=== PATIENT | male | born 1995 | race Caucasian/White ===

== ENCOUNTER → 2016-03-29 | Outpatient (CLI) | payer MEDICAID, BC ==
--- NOTE | 2016-03-29 09:55 | MR ---
MR right brain and internal auditory canals with and without contrast HISTORY: Right-sided hearing loss unspecified, H91.90 Multiplanar multisequence and postcontrast imaging obtained through the brain with small [id number] w and high resolution images through the internal/external auditory canals, patient received 20 cc Mu ltiHance IV No comparisons There is no evidence of acute ischemia. Inflammatory change present in the left maxillary sinus may r epresent retention cyst. Minimal mucosal disease present in the ethmoid air cells, sphenoid, left fro ntal sinus. The orbits show symmetric appearance. Normal vascular flow voids and enhancement are pres ent. Brain signal is maintained. No hemorrhage or hydrocephalus. Corpus callosum, pituitary, cervical medullary junction, cerebellopontine angles are normal. No abnormal enhancement following contrast m enstruation. Semicircular canals, cochlea show a symmetric appearance. IMPRESSION: Sinus disease. No evident acoustic neuroma or cerebellopontine angle mass.
== END | disposition home or self-care (01) ==
LOC: RADMRIMAIN 08:56
PROVIDERS: ATTEND Nurse Practitioner Family
DX: J32.9 Chronic sinusitis, unspecified (principal); H90.5 Unspecified sensorineural hearing loss
CPT/HCPCS: 70553; A9577

== ENCOUNTER → 2016-03-31 | Outpatient (CLI) | payer MEDICAID, BC ==
[2016-04-07 15:48] LABS: Mis test requested (Blood) Heat Shock Protein70
[2016-04-14 16:23] LABS: Mis test requested (Blood) Collagen Type II Ab
== END | disposition home or self-care (01) ==
LOC: LABWHC1 14:28
PROVIDERS: ATTEND Nurse Practitioner Family
DX: H91.90 Unspecified hearing loss, unspecified ear (principal)
CPT/HCPCS: 36415; 83516; 83520; 86038

== ENCOUNTER → 2018-01-31 | Outpatient (CLI) | payer MEDICAID, BC ==
--- NOTE | 2018-01-31 12:41 | US ---
EXAMINATION TYPE: US abdomen complete DATE OF EXAM: 01/31/2018 COMPARISON: 04/09/2015 CLINICAL HISTORY: R11.2 nausea and vomiting, R10.13 Epi Pain. RUQ pain, nausea and vomiting EXAM MEASUREMENTS: Liver Length: 15.8 cm Gallbladder Wall: 0.3 cm CBD: 0.4 cm Spleen: 12.1 cm Right Kidney: 10.4 x 4.3 x 5.9 cm Left Kidney: 11.3 x 5.8 x 5.2 cm Pancreas: limited evaluation due to overlying bowel content Liver: wnl Gallbladder: no evidence of stones Evidence for sonographic Conway's sign: no CBD: wnl Spleen: wnl Right Kidney: no evidence of hydronephrosis Left Kidney: no evidence of hydronephrosis Upper IVC: wnl Abd Aorta: wnl The liver is homogenous. The intrahepatic portion of the IVC and proximal abdominal aorta are within normal limits. There is no evidence of cholelithiasis. Common bile duct is unremarkable. The visu alized portions of the pancreas are homogenous. The spleen is unremarkable. Kidneys are symmetric a nd free of hydronephrosis. No renal lesions are seen. IMPRESSION: Unremarkable abdominal ultrasound. No sonographic evidence of acute cholecystitis nor cho lelithiasis.
== END | disposition home or self-care (01) ==
LOC: RADUSWWP 10:16
PROVIDERS: ATTEND Family Medicine
DX: K21.9 Gastro-esophageal reflux disease without esophagitis (principal); K25.7 Chronic gastric ulcer without hemorrhage or perforation; R94.6 Abnormal results of thyroid function studies
CPT/HCPCS: 76700

== ENCOUNTER 2018-03-02 10:00 | Day surgery (SDC) | payer MEDICAID, BC ==
[2018-02-28 13:23] VITALS: BMI 28.7
[~2018-03-02 10:00] MED LIST: LACTATED RINGERS 1,000 ML IV SCH
[2018-03-02] MEDS ORDERED: LIDOCAINE 1% 20 ML VIAL (10MG/ML) FOR IV START INTRADERMA ONE (10:16)
[2018-03-02 10:24] VITALS: TEMP 98.1
[2018-03-02] MEDS ORDERED: PROPOFOL 10 MG/ML 20 ML VIAL IV ONE (10:51)
[2018-03-02] MEDS ORDERED: LIDOCAINE 1% INJ 10MG/ML (20 ML MDV) ONE (10:51)
--- NOTE | 2018-03-02 11:08 | P.OP ---
Date of Procedure: 03/02/18 Preoperative Diagnosis: Nausea and vomiting Postoperative Diagnosis: Hiatal hernia Gastritis Duodenitis Procedure(s) Performed: EGD with biopsy Surgeon: Zafar Noyola Pathology: other (Biopsies of esophagus, antrum, duodenum) Condition: stable Disposition: same day Indications for Procedure: 22-year-old male with chronic history of nausea and vomiting throughout the day that is sometimes brought on by oral intake. He has been trying to Dexilant, Carafate and occasional Zofran with minimal success. He has never had an EGD. He did provide consent prior to attending the endoscopy suite. Risks, benefits and alternatives were provided. Operative Findings: Small hiatal hernia Gastritis and duodenitis Description of Procedure: The patient was brought into the endoscopy suite and placed in left lateral decubitus position. Anesthesia was provided. The scope was then inserted into the hypopharynx and was entered into the hypopharynx. The esophagus was easily intubated and traversed. There were no abnormalities of the esophagus. The stomach was entered and was insufflated. The scope was coursed along the greater curvature towards the antrum. There were some inflammatory changes noted in the antrum adjacent to the pylorus. The pylorus was then entered. The duodenal bulb and sweep were examined. There was mild inflammatory changes and biopsies were taken. The scope was then brought back into the antrum and biopsies of the antrum were taken. The scope was unretroflexed. The fundus and the body did insufflate appropriately. There were no obvious masses throughout the stomach. There was a notable small hiatal hernia. The scope was then slowly withdrawn aspirating the air. The GE junction was unremarkable. Biopsies were taken. The scope was then fully withdrawn. The patient tolerated procedure well was transferred to postanesthesia recovery unit in stable condition.
[2018-03-02 11:13] VITALS: RESP 18
[2018-03-02 11:40] VITALS: BP 112/70; PULSE 68
== END 2018-03-02 11:52 | disposition home or self-care (01) ==
LOC: ORWHC2ENDO 10:00
PROVIDERS: ATTEND Surgery
DX: K29.80 Duodenitis without bleeding (principal); K21.0 Gastro-esophageal reflux disease with esophagitis; K29.70 Gastritis, unspecified, without bleeding; K44.9 Diaphragmatic hernia without obstruction or gangrene; Z79.899 Other long term (current) drug therapy
CPT/HCPCS: 88305; 43239; J2001; J2704

== ENCOUNTER → 2018-09-12 | Outpatient (CLI) | payer MEDICAID, BC ==
[2018-09-12 15:24] LABS: Basophils % (A) 1 %; Eosinophils # (A) 0.3 k/uL (0-0.7); Eosinophils % (A) 5 %; HCT 43.9 % (39.0-53.0); HGB 14.6 gm/dL (13.0-17.5); Lymphocytes # (A) 1.6 k/uL (1.0-4.8); Lymphocytes % (A) 29 %; MCH 30.2 pg (25.0-35.0); MCHC 33.3 g/dL (31.0-37.0); MCV 90.8 fL (80.0-100.0); Mean Platelet Volume 7.3; Monocytes # (A) 0.4 k/uL (0-1.0); Monocytes % (A) 7 %; Neutrophils # (A) 3.1 k/uL (1.3-7.7); Neutrophils % (A) 55 %; Platelet Count 230 k/uL (150-450); RBC 4.84 m/uL (4.30-5.90); RDW 12.6 % (11.5-15.5); WBC 5.7 k/uL (3.8-10.6)
[2018-09-12 19:25] LABS: African American GFR (CKD) 109.1 (60.0-200.0); Albumin 4.7 g/dL (3.80-4.90); Albumin/Globulin Ratio 2.47 (1.60-3.17); Anion Gap 9.8 mmol/L (4.00-12.00); BUN/Creat Ratio 10.91 Ratio (12.00-20.00); Calcium 9.8 mg/dL (8.7-10.3); Carbon Dioxide 28.2 mmol/L (21.6-31.8); Globulin 1.9 g/dL (1.6-3.3); Magnesium 1.7 mg/dL (1.5-2.4); Potassium 4.1 mmol/L (3.5-5.5); Total Bilirubin 0.8 mg/dL (0.3-1.2); Total Protein 6.6 g/dL (6.2-8.2)
== END | disposition home or self-care (01) ==
LOC: LABWHC1 14:39
PROVIDERS: ATTEND Internal Medicine
DX: K21.0 Gastro-esophageal reflux disease with esophagitis (principal)
CPT/HCPCS: 36415; 80053; 83735; 85025

== ENCOUNTER 2020-01-21 19:41 | Emergency (ER) | payer BC, MEDICAID ==
[2020-01-21 20:05] VITALS: RESP 18
[2020-01-21] MEDS ORDERED: SODIUM CHLORIDE 0.9% 1,000 ML IV STA ×2 (21:19)
[2020-01-21] MEDS ORDERED: KETOROLAC 15 MG/ML 1 ML VIAL IVP STA (21:21)
--- NOTE | 2020-01-21 21:21 | ED ---
General Adult HPI - General Chief complaint: Syncope Stated complaint: Neck/shoulder injury, loss of consciousness Time Seen by Provider: 01/21/20 20:58 Source: patient, family, RN notes reviewed Mode of arrival: ambulatory Limitations: no limitations - History of Present Illness Initial comments: This is a 24-year-old male who states he was working out earlier today doing some overhead presses when he felt some strain to the right shoulder and neck a radha. Later he was walking through his house when he felt lightheaded and passed out for about 10 seconds. He did strike his head against a tray of some sort. He is going out for about 10 seconds per his mother. He complains of very minimal pain was had he does however complain of pain to the right shoulder where he was working out he did not land on his side however. He states pain is 9/10 in severity somewhat sharp. No palpitations no fevers chills nausea vomiting sweats or other symptoms no cardiac history in the family at early age. No other complaints or modifying factors - Related Data Home Medications Medication Instructions Recorded Confirmed Ondansetron Odt [Zofran ODT] 8 mg PO DAILY PRN 01/21/20 01/21/20 Pantoprazole Sodium [Protonix] 40 mg PO BID PRN 01/21/20 01/21/20 Allergies Allergy/AdvReac Type Severity Reaction Status Date / Time No Known Allergies Allergy Verified 01/21/20 21:34 Review of Systems ROS Statement: Those systems with pertinent positive or pertinent negative responses have been documented in the HPI. ROS Other: All systems not noted in ROS Statement are negative. Past Medical History Past Medical History: GERD/Reflux Additional Past Medical History / Comment(s): Has nausea and vomiting with some weight [id number] lb fluctuation History of Any Multi-Drug Resistant Organisms: None Reported Past Surgical History: Appendectomy, Ear Surgery Additional Past Surgical History / Comment(s): R ear reconstruction X 3. Past Anesthesia/Blood Transfusion Reactions: No Reported Reaction Past Psychological History: No Psychological Hx Reported Smoking Status: Never smoker Past Alcohol Use History: Occasional Past Drug Use History: None Reported - Past Family History Father Family Medical History: CVA/TIA Mother Family Medical History: No Reported History General Exam - General Exam Comments Initial Comments: This is a well-developed well-nourished awake alert oriented times 3 male Limitations: no limitations General appearance: alert, in no apparent distress Head exam: Present: normocephalic, normal inspection, other (Tenderness palpation over the left temporal frontal scalp small area contusion noted. No step-off or crepitation.) Eye exam: Present: normal appearance, PERRL, EOMI. Absent: scleral icterus, conjunctival injection, periorbital swelling ENT exam: Present: normal exam, mucous membranes moist Neck exam: Present: normal inspection, tenderness (Some tenderness palpation on the right lateral neck musculature.), full ROM, other (No stridor JVD or bruits). Absent: meningismus, lymphadenopathy Respiratory exam: Present: normal lung sounds bilaterally. Absent: respiratory distress, wheezes, rales, rhonchi, stridor Cardiovascular Exam: Present: regular rate, normal rhythm, normal heart sounds. Absent: systolic murmur, diastolic murmur, rubs, gallop, clicks GI/Abdominal exam: Present: soft, normal bowel sounds. Absent: distended, ten derness, guarding, rebound, rigid Extremities exam: Present: normal inspection, full ROM, normal capillary refill. Absent: tenderness, pedal edema, joint swelling, calf tenderness Back exam: Present: normal inspection Neurological exam: Present: alert, oriented X3, CN II-XII intact Psychiatric exam: Present: normal affect, normal mood Skin exam: Present: warm, dry, intact, normal color. Absent: rash Course Vital Signs 01/21/20 20:00 Temperature 97.4 F L Pulse Rate 55 L Respiratory 18 Rate Blood Pressure 100/70 O2 Sat by Pulse 98 Oximetry EKG Findings - EKG Results: EKG: interpreted by MERISSA, sinus rhythm (Sinus bradycardia rate of 51. We'll 168 QRS 110 QT since QTC 446/[address]-T wave changes some artifact present) Medical Decision Making - Medical Decision Making Patient is feeling much improved this time he did have a vasovagal episode while getting an IV placed. He since then has felt much improved I did review the findings with the patient's mother. The patient will be discharged we did discuss hydration as well as management of sore muscles. - Lab Data Result diagrams: 01/21/20 21:28 01/21/20 21:28 Lab Results 01/21/20 01/21/20 01/21/20 Range/Units 21:28 21:28 21:28 WBC 14.5 H (3.8-10.6) k/uL RBC 5.23 (4.30-5.90) m/uL Hgb 16.5 (13.0-17.5) gm/dL Hct 47.8 (39.0-53.0) % MCV 91.5 (80.0-100.0) fL MCH 31.5 (25.0-35.0) pg MCHC 34.5 (31.0-37.0) g/dL RDW 12.3 (11.5-15.5) % Plt Count 212 (150-450) k/uL Neutrophils % 80 % Lymphocytes % 10 % Monocytes % 6 % Eosinophils % 2 % Basophils % 1 % Neutrophils # 11.6 H (1.3-7.7) k/uL Lymphocytes # 1.5 (1.0-4.8) k/uL Monocytes # 0.8 (0-1.0) k/uL Eosinophils # 0.3 (0-0.7) k/uL Basophils # 0.1 (0-0.2) k/uL PT 10.4 (9.0-12.0) sec INR 1.0 (<1.2) APTT 21.7 L (22.0-30.0) sec Sodium (137-145) mmol/L Potassium (3.5-5.1) mmol/L Chloride (98-107) mmol/L Carbon Dioxide (22-30) mmol/L Anion Gap mmol/L BUN (9-20) mg/dL Creatinine (0.66-1.25) mg/dL Est GFR (CKD-EPI)AfAm (>60 ml/min/1.73 sqM) Est GFR (CKD-EPI)NonAf (>60 ml/min/1.73 sqM) Glucose (74-99) mg/dL Calcium (8.4-10.2) mg/dL Magnesium (1.6-2.3) mg/dL Total Bilirubin (0.2-1.3) mg/dL AST (17-59) U/L ALT (4-49) U/L Alkaline Phosphatase (38-126) U/L Creatine Kinase (55-170) U/L Troponin I (0.000-0.034) ng/mL Total Protein (6.3-8.2) g/dL Albumin (3.5-5.0) g/dL Urine Color Yellow Urine Appearance Clear (Clear) Urine pH 6.0 (5.0-8.0) Ur Specific [place] 1.029 (1.001-1.035) Urine Protein Trace H (Negative) Urine Glucose (UA) Negative (Negative) Urine Ketones Negative (Negative) Urine Blood Negative (Negative) Urine Nitrite Negative (Negative) Urine Bilirubin Negative (Negative) Urine Urobilinogen <2.0 (<2.0) mg/dL Ur Leukocyte Esterase Negative (Negative) 01/21/20 01/21/20 Range/Units 21:28 21:28 WBC (3.8-10.6) k/uL RBC (4.30-5.90) m/uL Hgb (13.0-17.5) gm/dL Hct (39.0-53.0) % MCV (80.0-100.0) fL MCH (25.0-35.0) pg MCHC (31.0-37.0) g/dL RDW (11.5-15.5) % Plt Count (150-450) k/uL Neutrophils % % Lymphocytes % % Monocytes % % Eosinophils % % Basophils % % Neutrophils # (1.3-7.7) k/uL Lymphocytes # (1.0-4.8) k/uL Monocytes # (0-1.0) k/uL Eosinophils # (0-0.7) k/uL Basophils # (0-0.2) k/uL PT (9.0-12.0) sec INR (<1.2) APTT (22.0-30.0) sec Sodium 139 (137-145) mmol/L Potassium 4.3 (3.5-5.1) mmol/L Chloride 104 (98-107) mmol/L Carbon Dioxide 23 (22-30) mmol/L Anion Gap 12 mmol/L BUN 16 (9-20) mg/dL Creatinine 1.04 (0.66-1.25) mg/dL Est GFR (CKD-EPI)AfAm >90 (>60 ml/min/1.73 sqM) Est GFR (CKD-EPI)NonAf >90 (>60 ml/min/1.73 sqM) Glucose 108 H (74-99) mg/dL Calcium 10.4 H (8.4-10.2) mg/dL Magnesium 2.1 (1.6-2.3) mg/dL Total Bilirubin 0.7 (0.2-1.3) mg/dL AST 26 (17-59) U/L ALT 13 (4-49) U/L Alkaline Phosphatase 69 (38-126) U/L Creatine Kinase 68 (55-170) U/L Troponin I 0.018 (0.000-0.034) ng/mL Total Protein 8.5 H (6.3-8.2) g/dL Albumin 5.3 H (3.5-5.0) g/dL Urine Color Urine Appearance (Clear) Urine pH (5.0-8.0) Ur Specific [place] (1.001-1.035) Urine Protein (Negative) Urine Glucose (UA) (Negative) Urine Ketones (Negative) Urine Blood (Negative) Urine Nitrite (Negative) Urine Bilirubin (Negative) Urine Urobilinogen (<2.0) mg/dL Ur Leukocyte Esterase (Negative) - Radiology Data Radiology results: report reviewed (I did review the imaging and report no acute findings.), image reviewed Disposition Clinical Impression: Vasovagal syncope, Myofascial pain on right side Disposition: HOME SELF-CARE Condition: Good Instructions (If sedation given, give patient instructions): Syncope (ED), Musculoskeletal Pain (ED) Additional Instructions: [id number] ibuprofen up to 800 mg every 6 hours when necessary pain Is patient prescribed a controlled substance at d/c from ED?: No Referrals: None,Stated [Primary Care Provider] - 1-2 days
[2020-01-21 22:02] LABS: Basophils # (A) 0.1 k/uL (0-0.2); Basophils % (A) 1 %; Eosinophils # (A) 0.3 k/uL (0-0.7); Eosinophils % (A) 2 %; HCT 47.8 % (39.0-53.0); HGB 16.5 gm/dL (13.0-17.5); Lymphocytes # (A) 1.5 k/uL (1.0-4.8); Lymphocytes % (A) 10 %; MCH 31.5 pg (25.0-35.0); MCHC 34.5 g/dL (31.0-37.0); MCV 91.5 fL (80.0-100.0); Mean Platelet Volume 10.6; Monocytes # (A) 0.8 k/uL (0-1.0); Monocytes % (A) 6 %; Neutrophils # (A) 11.6 k/uL (1.3-7.7); Neutrophils % (A) 80 %; Platelet Count 212 k/uL (150-450); RBC 5.23 m/uL (4.30-5.90); RDW 12.3 % (11.5-15.5); WBC 14.5 k/uL (3.8-10.6)
[2020-01-21 22:12] LABS: Appearance,Urine Clear (Clear); Bilirubin,Urine Negative (Negative); Blood,Urine Negative (Negative); Color,Urine Yellow; Glucose,Urine (UA) Negative (Negative); Ketones,Urine Negative (Negative); Leukocyte Esterase,Urine Negative (Negative); Nitrite,Urine Negative (Negative); Protein,Urine Trace (Negative); Specific Gravity,Urine 1.029 (1.001-1.035); Urobilinogen,Urine <2.0 mg/dL (<2.0)
--- NOTE | 2020-01-21 22:13 | XR ---
EXAMINATION TYPE: XR chest 2V DATE OF EXAM: 01/21/2020 COMPARISON: NONE HISTORY: Syncope TECHNIQUE: 2 views FINDINGS: Heart and mediastinum are normal. Lungs are clear of infiltrate. There is no heart failure. There are chest leads. Bony thorax is intact. IMPRESSION: No active cardiopulmonary disease.
[2020-01-21 22:15] LABS: ALT 13 U/L (4-49); AST 26 U/L (17-59); African American GFR (CKD) >90 (>60 ml/min/1.73 sqM); Albumin 5.3 g/dL (3.5-5.0); Alkaline Phosphatase 69 U/L (38-126); Anion Gap 12 mmol/L; Blood Urea Nitrogen 16 mg/dL (9-20); Calcium 10.4 mg/dL (8.4-10.2); Carbon Dioxide 23 mmol/L (22-30); Chloride 104 mmol/L (98-107); Creatine Kinase 68 U/L (55-170); Glucose 108 mg/dL (74-99); Magnesium 2.1 mg/dL (1.6-2.3); Non-African American GFR(CKD) >90 (>60 ml/min/1.73 sqM); Potassium 4.3 mmol/L (3.5-5.1); Sodium 139 mmol/L (137-145); Total Bilirubin 0.7 mg/dL (0.2-1.3); Total Protein 8.5 g/dL (6.3-8.2)
[2020-01-21 22:17] LABS: Prothrombin Time 10.4 sec (9.0-12.0)
[2020-01-21 22:18] LABS: Partial Thromboplastin Time 21.7 sec (22.0-30.0)
--- NOTE | 2020-01-21 22:47 | CT ---
EXAMINATION TYPE: CT brain wo con DATE OF EXAM: 01/21/2020 COMPARISON: None HISTORY: Syncope. No prior CT DLP: 1078.4 mGycm Automated exposure control for dose reduction was used. Images obtained of the brain without contrast. Ventricles and sulci appear normal. There is no mass effect nor midline shift. There is no sign of in tracranial hemorrhage. The calvarium is intact. Skull base is intact. There is no evidence of cerebra l edema. IMPRESSION: Normal unenhanced head CT scan.
[2020-01-21 23:15] VITALS: BP 110/53; PULSE 64; TEMP 98.1
== END 2020-01-21 23:15 | disposition home or self-care (01) ==
LOC: EC 19:41
DX: R55 Syncope and collapse (principal); M79.18 Myalgia, other site; S00.03XA Contusion of scalp, initial encounter; K21.9 Gastro-esophageal reflux disease without esophagitis; W01.198A Fall on same level from slipping, tripping and stumbling with subsequent striking against other object, initial encounter
CPT/HCPCS: 36415; 93005; 80053; 82550; 83735; 84484; 85025; 85610; 85730; 81003; 71046; 70450; 99284; 96374; 96361; J1885